=== PATIENT | female | born 1990 | race Asian ===

== ENCOUNTER 2025-09-25 07:38 | Outpatient (REF) | payer OTHER, SELFPAY ==
--- OUTSIDE RECORDS SUMMARY | 2025-09-25 07:41 | XMS_ITS | Clinical Summary ---
Author Organization [facility] Address [address] [place] [phone] Phone Care Team Providers Care Director Audience Marketing Name Role Phone Pcp, Unknown Primary Care Provider Unavailabl e Allergies No known active allergies Social History Tobacco Use Types Packs/Day Years Used Date Smoking Tobacco: Never Assessed Education Answer Date Recorded Are you interested in more education? Not on mikal e 06/15/2025 Are you concerned about learning? Not on file 06/15/2025 No 06/15/2025 No 06/15/2025 Food Answer Date Recorded Within the past 6 months we worried whether our food would run out before we got money to buy more. Never True 06/15/2025 Within the past 6 months the food we bought just didn't last and we didn't have enough money to get more. Never True Residential Stability Answer Date Recor ded What is your housing situation today? I have edilma sing 06/15/2025 How many times have you moved in the past 12 wed th? One time 06/15/2025 Paying for Meds Answer Date Recorded Do you have trouble paying for medicines? No 06/15/2025 Paying Utility Bills Answer Date Record ed Do you have trouble paying your heating or elect ricity bill? No 06/15/2025 Transportation Answer Date Recorded Has the lack of transportati on kept you from medical appointments or from getting medications? No 06/15/2025 Digital Access Answer Date Recorded No 06/15/2025 Yes 06/15/2025 Do you have reliable internet access at home? Ye s 06/15/2025 Do you have a device (e.g., phone, tablet, computer) with a working camera? Yes 06/15/2025 Comments Unknown Sex and Gender Information Value Date Recorded Sex Assigned at Female 06/15/2025 2:43 PM EDT Legal Sex Female 2:26 PM EDT Gender Identity Female 06/15/2025 2:43 PM EDT Sexual Orientation Straight 06/15/2025 2: 43 PM EDT Last Filed Vital Signs Vital Sign Reading Time Taken Comments Blood Pressure 109/72 06/15/2025 7:20 PM EDT Pulse 83 06/15/2025 7:20 PM EDT Temperature 36 C (96.8 F) 06/15/2025 7:20 PM EDT Respiratory Rate 17 06/15/2025 7:20 PM EDT Oxygen Saturation 100% 06/15/2025 7:20 PM EDT Inhaled Oxygen Concentration - - Weight 52.6 kg (116 lb) 06/15/2025 6:21 PM EDT Height 152.4 cm (5') 06/15/2025 6:21 PM EDT Body Mass Index 22.65 06/15/2025 6:21 PM EDT Plan of Treatment Not on file Medical Devices Not on file [place] [address] [place] [address] [facility] [address] [facility] Care Teams Director Audience Marketing Relationship Specialty Start Date End Date Pcp, Unknown PCP - General 06/15/25 Additional Source Comments The information contained in this document represents components of the legal health record. It is not the complete legal health record.[facility]
== END 2025-09-25 07:39 | disposition home or self-care (01) ==
LOC: HO.UMASIMG 07:38
PROVIDERS: Visit Provider Nurse Practitioner Women's Health
DX: Z13.89 Encounter for screening for other disorder (principal)